=== PATIENT | female | born 1975 | race Two or more races ===

== ENCOUNTER 2016-10-24 03:01 | Inpatient (IN) | payer MEDICAID ==
[~2016-10-24] VITALS: Ht 154.9 cm; Wt 81.0 kg
[2016-10-24] VITALS (8 sets, daily range): BP systolic 110–134; BP diastolic 67–84
[~2016-10-24 03:01] MED LIST: ATEN50TA PO; BACL10TA PO; HYDR-2595 PO; LEVO500T3 PO; METR500T PO; PANT40TA2 PO; PRED-188 PO; SACC250C PO
[2016-10-24] MEDS ORDERED: MORPHINE SULFATE 4 MG/ML SYRG IV ONE ×3 (03:45→09:15)
[2016-10-24] MEDS ORDERED: ONDANSETRON HCL 4 MG/2 ML VIAL IV ONE ×2 (03:45→07:00)
[2016-10-24 03:58] LABS: DEFINITIVE VIEW TRANSMISSION; Hematocrit 25.2 % (36.0-46.0); Hemoglobin 7.7 g/dL (12.2-16.2); Mean Corpuscular Hemoglobin 24.5 pg (28.0-32.0); Mean Corpuscular Hgb Conc. 30.5 g/dL (32.0-36.0); Mean Corpuscular Volume 80.2 fL (80.0-100.0); Mean Platelet Volume 7.8 fL (7.4-10.4); Platelet Count (auto) 328 10^3/uL (140-450); White Blood Cell 3.7 10^3/uL (4.4-10.8)
[2016-10-24 04:28] LABS: Albumin 2.8 g/dL (3.4-5.0); BUN/Creatinine Ratio 14.2; Bilirubin, Total 0.2 mg/dL (0.2-1.0); Calcium 7.8 mg/dL (8.5-10.1); Potassium 3.6 mmol/L (3.5-5.1); Total Protein 6.9 g/dL (6.4-8.2)
[2016-10-24] MEDS ORDERED: SODIUM CHLORIDE 0.9% 1,000 ML IV ONE (04:30)
[2016-10-24 04:42] LABS: Red Cell Distribution Width 23.4 % (11.6-16.0)
[2016-10-24 04:43] LABS: Metamyelocytes % 0; Myelocytes % 0; Promyelocytes % 0; Reactive Lymphocytes 0
[2016-10-24 05:28] LABS: Anisocytosis Moderate; Hypersegmented Neutrophils Present; Hypochromia Moderate; Platelet Estimate Adequate
[2016-10-24 05:29] LABS: Ovalocytes MODERATE
[2016-10-24 07:04] LABS: Urine Color Light Yellow (Yellow)
[2016-10-24 07:05] LABS: Urine Bilirubin Negative (Negative); Urine Glucose Normal (Normal)
[2016-10-24 07:07] LABS: Urine Urobilinogen Normal (Negative)
[2016-10-24 07:08] LABS: Urine Blood Negative /uL (Negative); Urine Ketone Negative (Negative); Urine Nitrite Negative (Negative); Urine pH 6.5 (5.0-8.0)
[2016-10-24 07:11] LABS: Urine RBC None Seen /hpf (0 - 4); Urine Squamous Epithelial Cell FEW /hpf (<5)
[2016-10-24 07:55] LABS: Amylase 100 U/L (25-115)
[2016-10-24] MEDS ORDERED: PANTOPRAZOLE SODIUM 40 MG/10 ML VIAL IV ONE (12:45)
[2016-10-24] MEDS ORDERED: MORPHINE SULF INJ 2 MG/ML SYRINGE 1ML IV PRN (12:45)
[2016-10-24] MEDS ORDERED: cefTRIAXone 1GM/50ML D5W 50 ML IV ONE (12:45)
[2016-10-24] MEDS ORDERED: GASTROGRAFIN 120 ML SOL ONE (12:49)
[2016-10-24] MEDS ORDERED: predniSONE 5 MG TAB PO ONE (13:00)
[2016-10-24] MEDS: SODIUM CHLORIDE 0.9% 1,000 ML IV SCH (13:11)
[2016-10-24] MEDS ORDERED: AZITHROMYCIN 250 MG TAB PO ONE (13:45)
[2016-10-24] MEDS: ONDANSETRON HCL 4 MG/2 ML VIAL IV PRN (16:13)
[2016-10-24] MEDS: MORPHINE SULF INJ 2 MG/ML SYRINGE 1ML IV PRN ×2 (18:05→23:36)
[2016-10-24] MEDS: HYDROcodone-ACET 5/325MG TAB PO PRN (20:49)
[2016-10-25] VITALS (7 sets, daily range): BP systolic 116–160; BP diastolic 63–86
[2016-10-25] MEDS: SODIUM CHLORIDE 0.9% 1,000 ML IV SCH ×2 (02:05→17:19)
[2016-10-25] MEDS: MORPHINE SULF INJ 2 MG/ML SYRINGE 1ML IV PRN ×4 (04:03→21:59)
[2016-10-25] MEDS: ONDANSETRON HCL 4 MG/2 ML VIAL IV PRN ×3 (04:03→17:20)
[2016-10-25 05:36] LABS: Basophils # (auto) 0 uL; DEFINITIVE VIEW TRANSMISSION; Eosinophils # (auto) 0.1 uL; Eosinophils % (auto) 2.4 % (0.0-7.0); Hematocrit 29.6 % (36.0-46.0); Hemoglobin 9.3 g/dL (12.2-16.2); Lymphocytes # (auto) 0.3 uL; Lymphocytes % (auto) 6.1 % (10.0-50.0); Mean Corpuscular Hemoglobin 25.1 pg (28.0-32.0); Mean Corpuscular Hgb Conc. 31.5 g/dL (32.0-36.0); Mean Corpuscular Volume 79.7 fL (80.0-100.0); Mean Platelet Volume 8.1 fL (7.4-10.4); Monocytes # (auto) 0.2 uL; Monocytes % (auto) 3.6 % (0.0-12.0); Neutrophils # (auto) 3.9 uL; Neutrophils % (auto) 87.9 % (37.0-80.0); Platelet Count (auto) 273 10^3/uL (140-450); White Blood Cell 4.4 10^3/uL (4.4-10.8)
[2016-10-25 05:53] LABS: INR 1.08 (0.9-1.15); Partial Thromboplastin Time 23.6 sec (22.64-33.71); Prothrombin Time 11.1 sec (9.37-12.3)
[2016-10-25 05:56] LABS: Red Cell Distribution Width 20.5 % (11.6-16.0)
[2016-10-25 06:10] LABS: Calcium 7.5 mg/dL (8.5-10.1); Potassium 3.5 mmol/L (3.5-5.1)
[2016-10-25 06:26] LABS: Anisocytosis Moderate; Hypochromia Slight; Ovalocytes MODERATE
[2016-10-25 06:27] LABS: Large Platelets FEW; Platelet Estimate Adequa; Tear Drop Cells FEW
[2016-10-25] MEDS: HYDROcodone-ACET 5/325MG TAB PO PRN (07:22)
[2016-10-25] MEDS: cefTRIAXone 1GM/50ML D5W 50 ML IV SCH (10:06)
[2016-10-25] MEDS: predniSONE 5 MG TAB PO SCH (10:06)
[2016-10-25] MEDS: PANTOPRAZOLE SODIUM 40 MG/10 ML VIAL IV SCH (10:06)
[2016-10-25] MEDS: AZITHROMYCIN 250 MG TAB PO SCH (10:07)
[2016-10-26] MEDS: ONDANSETRON HCL 4 MG/2 ML VIAL IV PRN ×2 (02:04→10:45)
[2016-10-26] MEDS: MORPHINE SULF INJ 2 MG/ML SYRINGE 1ML IV PRN ×3 (02:05→10:45)
[2016-10-26] MEDS: SODIUM CHLORIDE 0.9% 1,000 ML IV SCH (04:45)
[2016-10-26 05:00] VITALS: BP 142/60
[2016-10-26 09:00] VITALS: BP_SYST 127; BP_SYST 139; BP_DIAS 100; BP_DIAS 89
[2016-10-26] MEDS: AZITHROMYCIN 250 MG TAB PO SCH (10:44)
[2016-10-26] MEDS: predniSONE 5 MG TAB PO SCH (10:44)
[2016-10-26] MEDS: PANTOPRAZOLE SODIUM 40 MG/10 ML VIAL IV SCH (10:45)
[2016-10-26] MEDS: cefTRIAXone 1GM/50ML D5W 50 ML IV SCH (10:55)
[2016-10-26 13:00] VITALS: BP 138/77
== END 2016-10-26 14:25 | disposition left against medical advice (07) | DRG 254 ==
LOC: ER 03:01 → OVERFLOW 03:02 → EAST 14:23 → WEST WING 14:54
PROVIDERS: ADMIT Internal Medicine; ATTEND Internal Medicine
PROC: 30233N1 Transfusion of Nonautologous Red Blood Cells into Peripheral Vein, Percutaneous Approach (ICD-10-PCS; principal; 2016-10-24)
DX: K43.9 Ventral hernia without obstruction or gangrene (principal); J18.9 Pneumonia, unspecified organism; E44.0 Moderate protein-calorie malnutrition; M32.9 Systemic lupus erythematosus, unspecified; K52.9 Noninfective gastroenteritis and colitis, unspecified; I10 Essential (primary) hypertension; J44.9 Chronic obstructive pulmonary disease, unspecified; D64.9 Anemia, unspecified; G89.29 Other chronic pain; M79.7 Fibromyalgia; Z82.49 Family history of ischemic heart disease and other diseases of the circulatory system; Z83.3 Family history of diabetes mellitus; Z87.11 Personal history of peptic ulcer disease; Z87.442 Personal history of urinary calculi; Z87.891 Personal history of nicotine dependence; F32.9 Major depressive disorder, single episode, unspecified; M19.90 Unspecified osteoarthritis, unspecified site; Z90.49 Acquired absence of other specified parts of digestive tract; Z90.721 Acquired absence of ovaries, unilateral; Z68.33 Body mass index [BMI] 33.0-33.9, adult; Z53.21 Procedure and treatment not carried out due to patient leaving prior to being seen by health care provider
CPT/HCPCS: 36415; 71010; 74176; 74250; 76830; 76856; 80048; 80053; 81001; 82150; 82270; 83540; 83550; 83690; 84702; 85007; 85025; 85027; 85610; 85730; 86850; 86900; 86901; 86920; 93005; 94761; 96361; 96365; 96375; 96376; C9113; J0696; J2405

== ENCOUNTER 2017-04-18 23:09 | Emergency (ER) | payer MEDICAID ==
[~2017-04-18] VITALS: Ht 157.5 cm; Wt 74.4 kg
[~2017-04-18 23:09] MED LIST changes: +LEVO500T21 PO; -LEVO500T3 PO
[2017-04-18 23:48] VITALS: BP 124/60
[2017-04-19 00:11] LABS: Basophils # (auto) 0 uL; Basophils % (auto) 0.4 % (0.0-2.0); DEFINITIVE SEE PRINTOUT; Eosinophils # (auto) 0.1 uL; Eosinophils % (auto) 2.4 % (0.0-7.0); Hematocrit 28.9 % (36.0-46.0); Hemoglobin 9.2 g/dL (12.2-16.2); Lymphocytes # (auto) 1.2 uL; Lymphocytes % (auto) 20.9 % (10.0-50.0); Mean Corpuscular Hemoglobin 26.6 pg (28.0-32.0); Mean Corpuscular Hgb Conc. 31.8 g/dL (32.0-36.0); Mean Corpuscular Volume 83.6 fL (80.0-100.0); Mean Platelet Volume 7.6 fL (7.4-10.4); Monocytes # (auto) 0.5 uL; Neutrophils # (auto) 3.9 uL; Neutrophils % (auto) 68.3 % (37.0-80.0); Platelet Count (auto) 252 10^3/uL (140-450); Red Cell Distribution Width 18.5 % (11.6-16.0); White Blood Cell 5.7 10^3/uL (4.4-10.8)
[2017-04-19 00:31] LABS: INR 0.95 (0.9-1.15); Partial Thromboplastin Time 23.8 sec (22.64-33.71); Prothrombin Time 10.4 sec (9.37-12.3)
[2017-04-19 00:39] LABS: Albumin 3.3 g/dL (3.4-5.0); Anion Gap 9 (5-15); BUN/Creatinine Ratio 22.1; Blood Urea Nitrogen 25 mg/dL (7-18); Calcium 8.5 mg/dL (8.5-10.1); Carbon Dioxide 23 mmol/L (21-32); Chloride 113 mmol/L (98-107); GFR African American 68 mL/min; GFR Non-African American 56 mL/min; Glucose 80 mg/dL (74-106); Sodium 145 mmol/L (136-145)
[2017-04-19 00:44] LABS: Alkaline Phosphatase 58 U/L (45-117); Aspartate Aminotransferase 21 U/L (15-37); Bilirubin, Total 0.2 mg/dL (0.2-1.0); Total Protein 7.5 g/dL (6.4-8.2)
== END 2017-04-19 05:26 | disposition left against medical advice (07) ==
LOC: ER 23:20
DX: R10.9 Unspecified abdominal pain (principal); Z53.21 Procedure and treatment not carried out due to patient leaving prior to being seen by health care provider
CPT/HCPCS: 36415; 71020; 80053; 84484; 85025; 85610; 85730

== ENCOUNTER 2017-05-16 08:38 | Emergency (ER) | payer MEDICAID ==
[~2017-05-16] VITALS: Ht 157.5 cm; Wt 74.4 kg
[2017-05-16] MEDS ORDERED: SODIUM CHLORIDE 0.9% 1,000 ML IVB ONE (09:14)
[2017-05-16] MEDS ORDERED: DEXAMETHASONE SOD PHOS 4 MG/1ML SDV INJ IV ONE (09:15)
[2017-05-16] MEDS ORDERED: PROMETHAZINE HCL 25 MG/ML 1ML IV PRN (09:15)
[2017-05-16] MEDS ORDERED: KETOROLAC TROMETH 30 MG/ML 1ML VIAL IV ONE (09:15)
[2017-05-16 09:54] LABS: Basophils # (auto) 0 uL; Basophils % (auto) 0.9 % (0.0-2.0); Eosinophils # (auto) 0.1 uL; Hematocrit 32.6 % (36.0-46.0); Hemoglobin 9.7 g/dL (12.2-16.2); Lymphocytes # (auto) 0.9 uL; Lymphocytes % (auto) 25.5 % (10.0-50.0); Mean Corpuscular Hemoglobin 25.7 pg (28.0-32.0); Mean Corpuscular Hgb Conc. 29.8 g/dL (32.0-36.0); Mean Platelet Volume 7.9 fL (7.4-10.4); Monocytes # (auto) 0.3 uL; Monocytes % (auto) 7.3 % (0.0-12.0); Neutrophils # (auto) 2.2 uL; Neutrophils % (auto) 63.3 % (37.0-80.0); Nucleated Red Blood Cells % 0.1 %; Platelet Count (auto) 218 10^3/uL (140-450); White Blood Cell 3.5 10^3/uL (4.4-10.8)
[2017-05-16 10:04] LABS: Magnesium 2.1 mg/dL (1.6-2.6)
[2017-05-16 10:05] LABS: Albumin 3.4 g/dL (3.4-5.0); Calcium 8.5 mg/dL (8.5-10.1); Potassium 3.7 mmol/L (3.5-5.1)
[2017-05-16 10:09] LABS: BUN/Creatinine Ratio 14.9; Bilirubin, Total 0.3 mg/dL (0.2-1.0); Total Protein 7.4 g/dL (6.4-8.2)
[2017-05-16 10:20] VITALS: BP 115/57
[2017-05-16 11:52] LABS: Urine Bilirubin Negative (Negative); Urine Blood Negative /uL (Negative); Urine Color Yellow (Yellow); Urine Glucose Normal (Normal); Urine Ketone Negative (Negative); Urine Mucus FEW (None Seen); Urine Nitrite Negative (Negative); Urine RBC 2 /hpf (0 - 4); Urine Squamous Epithelial Cell FEW /hpf (<5); Urine Urobilinogen Normal (Negative)
== END 2017-05-16 12:04 | disposition left against medical advice (07) ==
LOC: ER 08:38
DX: N39.0 Urinary tract infection, site not specified (principal); M32.9 Systemic lupus erythematosus, unspecified; K43.9 Ventral hernia without obstruction or gangrene; D64.9 Anemia, unspecified; M19.90 Unspecified osteoarthritis, unspecified site; J44.9 Chronic obstructive pulmonary disease, unspecified; I10 Essential (primary) hypertension; Z87.442 Personal history of urinary calculi; Z90.49 Acquired absence of other specified parts of digestive tract; Z90.89 Acquired absence of other organs; Z87.891 Personal history of nicotine dependence; Z79.899 Other long term (current) drug therapy; Z53.29 Procedure and treatment not carried out because of patient's decision for other reasons
CPT/HCPCS: 36415; 71020; 74176; 80053; 81001; 83690; 83735; 84443; 85025; 93005; 96361; 96374; 96375; 99285; J1100; J1885; J2550; J7030

== ENCOUNTER 2017-11-26 12:40 | Inpatient (IN) | payer MEDICAID ==
[~2017-11-26] VITALS: Ht 157.5 cm; Wt 82.4 kg
[2017-11-26] MEDS ORDERED: PANTOPRAZOLE 40 MG/10 ML VIAL IV STA (13:13)
[2017-11-26] MEDS ORDERED: SODIUM CHLORIDE 0.9% 500 ML IVB ONE (13:13)
[2017-11-26] MEDS ORDERED: ONDANSETRON HCL 4 MG/2 ML VIAL IV ONE (13:15)
[2017-11-26] MEDS ORDERED: MORPHINE SULFATE 4 MG/ML SYR/VIAL IV ONE (13:15)
[2017-11-26 14:08] LABS: Basophils # (auto) 0 uL; Hematocrit 32.7 % (36.0-46.0); Mean Corpuscular Hemoglobin 25.7 pg (28.0-32.0); Mean Corpuscular Hgb Conc. 31.6 g/dL (32.0-36.0); Mean Corpuscular Volume 81.4 fL (80.0-100.0); Monocytes # (auto) 0.4 uL; Red Blood Cells 4.02 10^6/uL (4.0-5.20); White Blood Cell 7.4 10^3/uL (4.4-10.8)
[2017-11-26 14:10] LABS: Basophils % (auto) 0.2 % (0.0-2.0); Eosinophils # (auto) 0 uL; Eosinophils % (auto) 0.5 % (0.0-7.0); Hemoglobin 10.4 g/dL (12.2-16.2); Lymphocytes # (auto) 0.5 uL; Lymphocytes % (auto) 6.6 % (10.0-50.0); Monocytes % (auto) 5.3 % (0.0-12.0); Neutrophils # (auto) 6.5 uL; Neutrophils % (auto) 87.4 % (37.0-80.0); Platelet Count (auto) 264 10^3/uL (140-450); Red Cell Distribution Width 17.7 % (11.8-14.3)
[2017-11-26 14:21] LABS: Calcium 8.8 mg/dL (8.5-10.1); Magnesium 1.8 mg/dL (1.6-2.6); Potassium 3.1 mmol/L (3.5-5.1)
[2017-11-26 14:23] LABS: BUN/Creatinine Ratio 17.3
[2017-11-26 14:26] LABS: Bilirubin, Total 0.2 mg/dL (0.2-1.0); Total Protein 8.1 g/dL (6.4-8.2)
[2017-11-26] MEDS ORDERED: POTASSIUM CHL 20MEQ/100ML 100 ML IV ONE (14:45)
[2017-11-26] MEDS ORDERED: PANTOPRAZOLE 40 MG/10 ML VIAL IV ONE (15:15)
[2017-11-26] MEDS ORDERED: FAMOTIDINE (10MG/ML) 2ML VL IV ONE (15:15)
[2017-11-26] MEDS ORDERED: cefTRIAXone 1GM/10ml IVPUSH 10 ML IV ONE (15:15)
[2017-11-26 15:19] LABS: Urine Bacteria FEW /hpf (None Seen); Urine Blood 2+ /uL (Negative); Urine Mucus FEW (None Seen); Urine Specific Gravity 1.031 (1.001-1.035); Urine WBC 26 /hpf (0 - 5)
[2017-11-26] MEDS ORDERED: METHOTREXATE 2.5 MG TAB PO SCH (15:30)
[2017-11-26] MEDS ORDERED: predniSONE 5 MG TAB PO ONE (15:30)
[2017-11-26] MEDS ORDERED: MORPHINE SULFATE 4 MG/ML SYR/VIAL IV PRN (15:45)
[2017-11-26] MEDS ORDERED: NITROGLYCERIN 0.4 MG SL TAB SL PRN (15:45)
[2017-11-26] MEDS ORDERED: DOCUSATE SOD 100 MG CAP PO PRN (15:45)
[2017-11-26] MEDS ORDERED: AZITHROMYCIN 500MG/ 250ML 250 ML IV ONE (15:45)
[2017-11-26] MEDS ORDERED: GASTROGRAFIN 120 ML SOL ONE (15:57)
[2017-11-26] MEDS: SODIUM CHLORIDE 0.9% 1,000 ML IV SCH (16:19)
[2017-11-26] MEDS ORDERED: LORazepam 2MG/ML-1ML VIAL IV ONE (16:45)
[2017-11-26 18:00] VITALS: BP 128/86
[2017-11-26] MEDS: BOOST PLUS 8 ounce PO SCH (18:00)
[2017-11-26] MEDS: MORPHINE SULFATE 4 MG/ML SYR/VIAL IV PRN (19:38)
[2017-11-26] MEDS: ALBUTEROL SULF 2.5 MG/0.5ML(0.5%) NEB SOLN NEB SCH (20:29)
[2017-11-26] MEDS: TEMAZEPAM 15 MG CAP PO PRN (21:50)
[2017-11-26 22:00] VITALS: BP 122/83
[2017-11-27] MEDS: ONDANSETRON HCL 4 MG/2 ML VIAL IV PRN ×3 (00:10→10:44)
[2017-11-27] MEDS: SODIUM CHLORIDE 0.9% 1,000 ML IV SCH ×3 (00:11→18:07)
[2017-11-27] MEDS: MORPHINE SULFATE 4 MG/ML SYR/VIAL IV PRN ×5 (00:11→19:51)
[2017-11-27 05:00] VITALS: BP 120/77
[2017-11-27 05:28] LABS: Basophils # (auto) 0 uL; Basophils % (auto) 0.2 % (0.0-2.0); Eosinophils # (auto) 0 uL; Eosinophils % (auto) 0.8 % (0.0-7.0); Hematocrit 28.4 % (36.0-46.0); Lymphocytes # (auto) 0.6 uL; Lymphocytes % (auto) 11.6 % (10.0-50.0); Mean Corpuscular Hemoglobin 26.3 pg (28.0-32.0); Mean Corpuscular Hgb Conc. 31.8 g/dL (32.0-36.0); Mean Corpuscular Volume 82.8 fL (80.0-100.0); Monocytes # (auto) 0.2 uL; Monocytes % (auto) 4.2 % (0.0-12.0); Neutrophils # (auto) 4.5 uL; Neutrophils % (auto) 83.2 % (37.0-80.0); Platelet Count (auto) 221 10^3/uL (140-450); Red Blood Cells 3.43 10^6/uL (4.0-5.20); Red Cell Distribution Width 17.8 % (11.8-14.3); White Blood Cell 5.4 10^3/uL (4.4-10.8)
[2017-11-27 05:45] LABS: Albumin 2.5 g/dL (3.4-5.0); BUN/Creatinine Ratio 11.7; Bilirubin, Total 0.2 mg/dL (0.2-1.0); Calcium 7.7 mg/dL (8.5-10.1); Potassium 3.2 mmol/L (3.5-5.1)
[2017-11-27] MEDS: ALBUTEROL SULF 2.5 MG/0.5ML(0.5%) NEB SOLN NEB SCH ×5 (05:49→23:35)
[2017-11-27] MEDS: HYDROcodone-ACET 5/325MG TAB PO PRN (05:51)
[2017-11-27 08:58] VITALS: BP 116/71
[2017-11-27 09:16] VITALS: BP 116/71
[2017-11-27] MEDS ORDERED: METHOTREXATE 2.5 MG TAB PO SCH (10:00)
[2017-11-27] MEDS ORDERED: PANTOPRAZOLE 40 MG/10 ML VIAL IV SCH (10:00)
[2017-11-27] MEDS: BOOST PLUS 8 ounce PO SCH ×3 (10:09→18:00)
[2017-11-27] MEDS: MULTIPLE VITAMIN TAB PO SCH (10:11)
[2017-11-27] MEDS: predniSONE 5 MG TAB PO SCH (10:12)
[2017-11-27] MEDS: METOPROLOL SUCCINATE XL 50 MG TAB PO SCH (10:12)
[2017-11-27] MEDS: FOLIC ACID 1 MG TAB PO SCH (10:12)
[2017-11-27] MEDS: FAMOTIDINE (10MG/ML) 2ML VL IV SCH (10:13)
[2017-11-27] MEDS: cefTRIAXone 1GM/10ml IVPUSH 10 ML IV SCH (10:13)
[2017-11-27] MEDS: AZITHROMYCIN 500MG/ 250ML 250 ML IV SCH (10:14)
[2017-11-27] MEDS ORDERED: POTASSIUM CHLORIDE 40 MEQ, LIDOCAINE 1% (LOCAL ANESTH.) 4 ML in SODIUM CHL 0.9% 100 ML IV ONE (10:30)
[2017-11-27] MEDS ORDERED: PROMETHAZINE HCL 25 MG/ML 1ML IV ONE (12:30)
[2017-11-27] MEDS ORDERED: PROMETHAZINE HCL 25 MG/ML 1ML IV PRN (12:30)
[2017-11-27 13:11] VITALS: BP 106/83
[2017-11-27 16:28] VITALS: BP 128/75
[2017-11-27 22:00] VITALS: BP 118/67
[2017-11-27] MEDS: TEMAZEPAM 15 MG CAP PO PRN (22:53)
[2017-11-28] MEDS: SODIUM CHLORIDE 0.9% 1,000 ML IV SCH ×3 (00:53→15:58)
[2017-11-28] MEDS: HYDROcodone-ACET 5/325MG TAB PO PRN ×4 (01:52→22:55)
[2017-11-28] MEDS: ACETAMINOPHEN 325 MG TAB PO PRN ×2 (05:48→11:33)
[2017-11-28 05:49] LABS: Basophils # (auto) 0 uL; Lymphocytes # (auto) 0.8 uL; Monocytes # (auto) 0.2 uL; Nucleated Red Blood Cells % 0.1 %
[2017-11-28 05:52] LABS: Basophils % (auto) 0.3 % (0.0-2.0); Eosinophils # (auto) 0.1 uL; Eosinophils % (auto) 3.8 % (0.0-7.0); Hematocrit 28.9 % (36.0-46.0); Hemoglobin 9.1 g/dL (12.2-16.2); Lymphocytes % (auto) 21.2 % (10.0-50.0); Mean Corpuscular Hgb Conc. 31.5 g/dL (32.0-36.0); Mean Corpuscular Volume 83.4 fL (80.0-100.0); Monocytes % (auto) 5.9 % (0.0-12.0); Neutrophils # (auto) 2.6 uL; Neutrophils % (auto) 68.8 % (37.0-80.0); Platelet Count (auto) 223 10^3/uL (140-450); Red Blood Cells 3.46 10^6/uL (4.0-5.20); Red Cell Distribution Width 17.7 % (11.8-14.3); White Blood Cell 3.8 10^3/uL (4.4-10.8)
[2017-11-28 05:55] LABS: Mean Corpuscular Hemoglobin 26.7 pg (28.0-32.0)
[2017-11-28 05:59] VITALS: BP 123/67
[2017-11-28] MEDS: ALBUTEROL SULF 2.5 MG/0.5ML(0.5%) NEB SOLN NEB SCH ×3 (06:08→19:52)
[2017-11-28 06:15] LABS: Albumin 2.5 g/dL (3.4-5.0); BUN/Creatinine Ratio 8.9; Bilirubin, Total 0.1 mg/dL (0.2-1.0); Calcium 7.8 mg/dL (8.5-10.1); Magnesium 1.7 mg/dL (1.6-2.6); Potassium 3.3 mmol/L (3.5-5.1); Total Protein 6.7 g/dL (6.4-8.2)
[2017-11-28 08:00] VITALS: BP 137/84
[2017-11-28] MEDS: BOOST PLUS 8 ounce PO SCH ×3 (08:18→17:19)
[2017-11-28 08:49] VITALS: BP 137/84
[2017-11-28] MEDS: AZITHROMYCIN 500MG/ 250ML 250 ML IV SCH (09:20)
[2017-11-28] MEDS: MULTIPLE VITAMIN TAB PO SCH (09:21)
[2017-11-28] MEDS: predniSONE 5 MG TAB PO SCH (09:21)
[2017-11-28] MEDS: FOLIC ACID 1 MG TAB PO SCH (09:21)
[2017-11-28] MEDS: FAMOTIDINE (10MG/ML) 2ML VL IV SCH (09:21)
[2017-11-28] MEDS: cefTRIAXone 1GM/10ml IVPUSH 10 ML IV SCH (09:22)
[2017-11-28] MEDS: METOPROLOL SUCCINATE XL 50 MG TAB PO SCH (09:23)
[2017-11-28] MEDS ORDERED: METHOTREXATE 2.5 MG TAB PO SCH (10:00)
[2017-11-28] MEDS ORDERED: POTASSIUM CHLORIDE 40 MEQ, LIDOCAINE 1% (LOCAL ANESTH.) 4 ML in SODIUM CHL 0.9% 100 ML IV ONE (10:15)
[2017-11-28 13:00] VITALS: BP 150/91
[2017-11-28 16:38] VITALS: BP 142/73
[2017-11-28 22:00] VITALS: BP 124/72
[2017-11-29] MEDS: ALBUTEROL SULF 2.5 MG/0.5ML(0.5%) NEB SOLN NEB SCH
[2017-11-29] MEDS: SODIUM CHLORIDE 0.9% 1,000 ML IV SCH ×2 (01:53→10:13)
[2017-11-29 05:00] VITALS: BP 134/74
[2017-11-29] MEDS: HYDROcodone-ACET 5/325MG TAB PO PRN (05:44)
[2017-11-29 06:43] LABS: Basophils # (auto) 0 uL; Mean Corpuscular Hemoglobin 26.3 pg (28.0-32.0); Monocytes # (auto) 0.3 uL; White Blood Cell 5.4 10^3/uL (4.4-10.8)
[2017-11-29 06:47] LABS: Basophils % (auto) 0.2 % (0.0-2.0); Eosinophils # (auto) 0.2 uL; Eosinophils % (auto) 2.8 % (0.0-7.0); Hematocrit 28.4 % (36.0-46.0); Lymphocytes % (auto) 19.3 % (10.0-50.0); Mean Corpuscular Hgb Conc. 31.7 g/dL (32.0-36.0); Mean Corpuscular Volume 83.1 fL (80.0-100.0); Neutrophils # (auto) 3.9 uL; Neutrophils % (auto) 72.7 % (37.0-80.0); Platelet Count (auto) 234 10^3/uL (140-450); Red Blood Cells 3.42 10^6/uL (4.0-5.20); Red Cell Distribution Width 18.3 % (11.8-14.3)
[2017-11-29 07:01] LABS: Albumin 2.4 g/dL (3.4-5.0); BUN/Creatinine Ratio 9.3; Calcium 8.1 mg/dL (8.5-10.1); Potassium 3.5 mmol/L (3.5-5.1)
[2017-11-29 07:04] LABS: Bilirubin, Total 0.2 mg/dL (0.2-1.0); Total Protein 6.2 g/dL (6.4-8.2)
[2017-11-29 08:46] VITALS: BP 134/77
[2017-11-29] MEDS: AZITHROMYCIN 500MG/ 250ML 250 ML IV SCH (09:39)
[2017-11-29] MEDS: FAMOTIDINE (10MG/ML) 2ML VL IV SCH (09:39)
[2017-11-29] MEDS: cefTRIAXone 1GM/10ml IVPUSH 10 ML IV SCH (09:39)
[2017-11-29] MEDS: MULTIPLE VITAMIN TAB PO SCH (09:39)
[2017-11-29] MEDS: FOLIC ACID 1 MG TAB PO SCH (09:39)
[2017-11-29] MEDS: predniSONE 5 MG TAB PO SCH (09:39)
[2017-11-29] MEDS: ACETAMINOPHEN 325 MG TAB PO PRN (09:50)
[2017-11-29] MEDS: BOOST PLUS 8 ounce PO SCH (11:28)
[2017-11-29 11:48] VITALS: BP 137/84
[2017-11-29 12:37] VITALS: BP 126/80
== END 2017-11-29 12:13 | disposition home or self-care (01) | DRG 140 ==
LOC: EDBD 12:40 → ER 12:40 → TELE 12:41 → TELE-CENTR 17:50
PROVIDERS: ADMIT Internal Medicine; ATTEND Internal Medicine
DX: J44.0 Chronic obstructive pulmonary disease with (acute) lower respiratory infection (principal); E43 Unspecified severe protein-calorie malnutrition; J18.9 Pneumonia, unspecified organism; K56.600 Partial intestinal obstruction, unspecified as to cause; M32.9 Systemic lupus erythematosus, unspecified; E86.0 Dehydration; D50.9 Iron deficiency anemia, unspecified; D63.8 Anemia in other chronic diseases classified elsewhere; E87.6 Hypokalemia; F32.9 Major depressive disorder, single episode, unspecified; R09.1 Pleurisy; I12.9 Hypertensive chronic kidney disease with stage 1 through stage 4 chronic kidney disease, or unspecified chronic kidney disease; M19.90 Unspecified osteoarthritis, unspecified site; N18.2 Chronic kidney disease, stage 2 (mild); K42.9 Umbilical hernia without obstruction or gangrene; Z90.49 Acquired absence of other specified parts of digestive tract; Z79.899 Other long term (current) drug therapy; Z87.442 Personal history of urinary calculi; Z87.440 Personal history of urinary (tract) infections; Z87.11 Personal history of peptic ulcer disease; Z82.49 Family history of ischemic heart disease and other diseases of the circulatory system; Z83.3 Family history of diabetes mellitus; Z68.33 Body mass index [BMI] 33.0-33.9, adult
CPT/HCPCS: 36415; 74176; 74250; 80053; 81001; 83690; 83735; 85025; 87040; 87070; 87086; 87205; 94640; 94761; 96361; 96365; 96375; 96376; C9113; J2001; J2405; J3480; J3490

== ENCOUNTER 2018-05-22 11:33 | Emergency (ER) | payer MEDICAID ==
[~2018-05-22] VITALS: Ht 157.5 cm; Wt 83.9 kg
[2018-05-22 11:51] VITALS: BP 113/52
[2018-05-22 13:34] LABS: Basophils # (auto) 0 uL; Eosinophils # (auto) 0 uL; Hemoglobin 8.5 g/dL (12.2-16.2); Lymphocytes # (auto) 0.7 uL; Monocytes # (auto) 0.2 uL; Neutrophils # (auto) 4.5 uL; White Blood Cell 5.5 10^3/uL (4.4-10.8)
[2018-05-22 13:37] LABS: Basophils % (auto) 0.5 % (0.0-2.0); Eosinophils % (auto) 0.8 % (0.0-7.0); Hematocrit 28.1 % (36.0-46.0); Lymphocytes % (auto) 13.3 % (10.0-50.0); Mean Corpuscular Hemoglobin 24.8 pg (28.0-32.0); Mean Corpuscular Hgb Conc. 30.1 g/dL (32.0-36.0); Mean Corpuscular Volume 82.4 fL (80.0-100.0); Monocytes % (auto) 3.9 % (0.0-12.0); Neutrophils % (auto) 81.5 % (37.0-80.0); Platelet Count (auto) 292 10^3/uL (140-450); Red Blood Cells 3.41 10^6/uL (4.0-5.20)
[2018-05-22 13:54] LABS: Albumin 2.9 g/dL (3.4-5.0); BUN/Creatinine Ratio 31.7; Bilirubin, Total 0.2 mg/dL (0.2-1.0); Calcium 8.1 mg/dL (8.5-10.1); Potassium 4.7 mmol/L (3.5-5.1); Total Protein 7.1 g/dL (6.4-8.2)
== END 2018-05-22 18:08 | disposition left against medical advice (07) ==
LOC: ER 11:33
DX: M79.89 Other specified soft tissue disorders (principal); Z53.21 Procedure and treatment not carried out due to patient leaving prior to being seen by health care provider
CPT/HCPCS: 36415; 80053; 83880; 84702; 85025

== ENCOUNTER 2018-12-16 10:50 | Inpatient (IN) | payer MEDICAID | END 2018-12-20 15:45 | disposition home or self-care (01) | LOC: TELE-EAST 12-19 05:57 → ER 10:50 → TELE 16:31 → TELE-CENTR 18:52 | DX: K52.9 Noninfective gastroenteritis and colitis, unspecified (principal); M32.9 Systemic lupus erythematosus, unspecified; E87.2 Acidosis; E44.1 Mild protein-calorie malnutrition; E86.0 Dehydration; N39.0 Urinary tract infection, site not specified; I10 Essential (primary) hypertension; R00.1 Bradycardia, unspecified; E66.9 Obesity, unspecified; D50.9 Iron deficiency anemia, unspecified ==

== ENCOUNTER 2020-05-17 12:58 | Emergency (ER) | payer MEDICAID ==
[~2020-05-17] VITALS: Ht 152.4 cm; Wt 86.2 kg
[2020-05-17 14:16] VITALS: BP 134/86
[2020-05-17] MEDS ORDERED: methylPREDNISolone SOD SUCC 125 MG/2 ML VL IM ONE (14:30)
[2020-05-17] MEDS ORDERED: ONDANSETRON ODT 4 MG TAB PO ONE (14:30)
[2020-05-17] MEDS ORDERED: OXYCODONE W/ ACETAMINOPHEN 5/325MG TABLET PO ONE (14:30)
== END 2020-05-17 15:14 | disposition left against medical advice (07) ==
LOC: ER 12:58
DX: G89.29 Other chronic pain (principal); I10 Essential (primary) hypertension; J44.9 Chronic obstructive pulmonary disease, unspecified; F32.9 Major depressive disorder, single episode, unspecified; Z79.899 Other long term (current) drug therapy
CPT/HCPCS: Q0162

== ENCOUNTER 2021-03-25 19:24 | Inpatient (IN) | payer MEDICAID ==
[~2021-03-25] VITALS: Ht 157.5 cm; Wt 101.4 kg
[~2021-03-25 19:24] MED LIST changes: -LEVO500T21 PO; +LEVO500T31 PO
[2021-03-25] MEDS ORDERED: KETOROLAC TROMETH 30 MG/ML 1ML VIAL IV ONE (20:15)
[2021-03-25] MEDS ORDERED: fentaNYL CITRATE 100 MCG/2 ML VL IV ONE ×2 (20:15→22:30)
[2021-03-26] MEDS ORDERED: SODIUM CHLORIDE 0.9% 1,000 ML IV ONE
[2021-03-26] MEDS ORDERED: PROPOFOL 10 MG/ML 20 ML IV ONE
[2021-03-26] MEDS ORDERED: PROPOFOL 100 ML IV ONE (01:37)
[2021-03-26] MEDS ORDERED: ONDANSETRON HCL 4 MG/2 ML VIAL IV ONE (04:00)
[2021-03-26] MEDS ORDERED: HYDROmorphone HCL 2 MG/ML VL IV ONE (04:00)
[2021-03-26 04:50] LABS: Basophils # (auto) 0 10 ^3/uL (0-0.2); Basophils % (auto) 0.4 % (0.0-2.0); Eosinophils # (auto) 0.1 10 ^3/uL (0-0.8); Eosinophils % (auto) 0.6 % (0.0-7.0); Hematocrit 33.4 % (36.0-46.0); Hemoglobin 11.1 g/dL (12.2-16.2); Lymphocytes # (auto) 1.9 10 ^3/uL (0.4-5.4); Lymphocytes % (auto) 17.8 % (10.0-50.0); Mean Corpuscular Hgb Conc. 33.2 g/dL (32.0-36.0); Mean Corpuscular Volume 93.5 fL (80.0-100.0); Monocytes # (auto) 0.4 10 ^3/uL (0-1.3); Monocytes % (auto) 4.1 % (0.0-12.0); Neutrophils # (auto) 8.1 10 ^3/uL (1.6-8.6); Neutrophils % (auto) 77.1 % (37.0-80.0); Red Blood Cells 3.58 10^6/uL (4.0-5.20); Red Cell Distribution Width 14.7 % (11.8-14.3); White Blood Cell 10.5 10^3/uL (4.4-10.8)
[2021-03-26 05:22] LABS: INR 1.03 (0.9-1.15)
[2021-03-26 05:27] LABS: Alanine Aminotransferase 20 U/L (13-56); Anion Gap 7 (5-15); Aspartate Aminotransferase 12 U/L (15-37); Blood Urea Nitrogen 23 mg/dL (7-18); Calcium 7.6 mg/dL (8.5-10.1); Carbon Dioxide 19 mmol/L (21-32); Chloride 115 mmol/L (98-107); GFR African American 84 mL/min; GFR Non-African American 70 mL/min; Glucose 100 mg/dL (74-106); Potassium 3.6 mmol/L (3.5-5.1); Sodium 141 mmol/L (136-145)
[2021-03-26 05:31] LABS: Alkaline Phosphatase 59 U/L (45-117); Bilirubin, Total 0.2 mg/dL (0.2-1.0); Total Protein 6.6 g/dL (6.4-8.2)
[2021-03-26] MEDS ORDERED: MORPHINE SULFATE INJECTION 2 MG/ML SYRG IV PRN (06:45)
[2021-03-26] MEDS ORDERED: DOCUSATE SOD 100 MG CAP PO PRN (06:45)
[2021-03-26] MEDS ORDERED: NITROGLYCERIN 0.4 MG SL TAB SL PRN (06:45)
[2021-03-26] MEDS ORDERED: D5W/SOD CHL 0.45% 1,000 ML IV SCH (06:45)
[2021-03-26] MEDS ORDERED: ACETAMINOPHEN 325 MG TAB PO PRN (06:45)
[2021-03-26] MEDS ORDERED: ONDANSETRON HCL 4 MG/2 ML VIAL IV PRN (06:45)
[2021-03-26] MEDS: KETOROLAC TROMETH 30 MG/ML 1ML VIAL IV PRN ×3 (07:10→18:08)
[2021-03-26 09:26] LABS: Urine Bacteria MOD /hpf (None Seen); Urine Blood Negative /uL (Negative); Urine Hyaline Cast FEW /lpf (0 - 2); Urine Mucus FEW (None Seen); Urine Specific Gravity 1.027 (1.001-1.035); Urine WBC 34 /hpf (0 - 5)
[2021-03-26] MEDS ORDERED: ENOXAPARIN SOD 40 MG/0.4 ML SYRINGE SC SCH (10:00)
[2021-03-26] MEDS ORDERED: ZINC SULFATE 220mg CAP or TAB PO SCH (10:00)
[2021-03-26] MEDS ORDERED: ASCORBIC ACID 500 MG TAB PO SCH (10:00)
[2021-03-26] MEDS ORDERED: MULTIPLE VITAMIN TAB PO SCH (10:00)
[2021-03-26] MEDS: HYDROcodone-ACET 5/325MG TAB PO PRN ×3 (11:32→20:39)
[2021-03-26 12:29] VITALS: BP 150/75
[2021-03-26] MEDS: cefTRIAXone 1GM/50ML D5W 50 ML IV SCH (12:47)
[2021-03-26 17:00] VITALS: BP 135/81
[2021-03-26 22:00] VITALS: BP 124/75
[2021-03-27] MEDS: KETOROLAC TROMETH 30 MG/ML 1ML VIAL IV PRN (01:25)
[2021-03-27] MEDS: HYDROcodone-ACET 5/325MG TAB PO PRN (03:49)
[2021-03-27 05:00] VITALS: BP 132/95
[2021-03-27 07:43] LABS: Basophils # (auto) 0 10 ^3/uL (0-0.2); Basophils % (auto) 0.2 % (0.0-2.0); Eosinophils # (auto) 0.1 10 ^3/uL (0-0.8); Eosinophils % (auto) 0.8 % (0.0-7.0); Hematocrit 31.7 % (36.0-46.0); Hemoglobin 10.8 g/dL (12.2-16.2); Lymphocytes % (auto) 11.6 % (10.0-50.0); Mean Corpuscular Hemoglobin 31.9 pg (28.0-32.0); Mean Corpuscular Hgb Conc. 34.1 g/dL (32.0-36.0); Mean Corpuscular Volume 93.7 fL (80.0-100.0); Monocytes # (auto) 0.4 10 ^3/uL (0-1.3); Monocytes % (auto) 4.4 % (0.0-12.0); Neutrophils # (auto) 7.3 10 ^3/uL (1.6-8.6); Red Blood Cells 3.38 10^6/uL (4.0-5.20); Red Cell Distribution Width 14.4 % (11.8-14.3); White Blood Cell 8.8 10^3/uL (4.4-10.8)
[2021-03-27 07:51] LABS: Potassium 3.4 mmol/L (3.5-5.1)
[2021-03-27 08:03] LABS: Albumin 2.8 g/dL (3.4-5.0); BUN/Creatinine Ratio 23.5; Bilirubin, Total 0.5 mg/dL (0.2-1.0); Calcium 8.1 mg/dL (8.5-10.1); Total Protein 6.5 g/dL (6.4-8.2)
[2021-03-27 09:00] VITALS: BP 143/107
[2021-03-27] MEDS ORDERED: MIDAZOLAM HCL 2MG/2ML 2ml VIAL (1mg/ml) IV PRN (09:15)
[2021-03-27] MEDS ORDERED: MORPHINE SULFATE INJECTION 2 MG/ML SYRG IV PRN (09:15)
[2021-03-27] MEDS ORDERED: ePHEDrine SULFATE 50 MG/ML AMP IV PRN (09:15)
[2021-03-27] MEDS ORDERED: ONDANSETRON HCL 4 MG/2 ML VIAL IV PRN (09:15)
[2021-03-27] MEDS ORDERED: LABETALOL HCL 5 MG/ML 4ML SYRINGE IV PRN (09:15)
[2021-03-27] MEDS ORDERED: HYDROmorphone HCL 2 MG/ML VL IV PRN (09:15)
[2021-03-27] MEDS: cefTRIAXone 1GM/50ML D5W 50 ML IV SCH (09:36)
[2021-03-27 10:36] VITALS: BP 145/86
== END 2021-03-27 11:40 | disposition home or self-care (01) | DRG 342 ==
LOC: ER 19:24 → EDBD 19:24 → TELE 03-26 06:37 → EAST 03-26 10:40 → TELE-EAST 03-26 20:14
PROVIDERS: ADMIT Nurse Practitioner Family; ATTEND Nurse Practitioner Family
PROC: 0PSCXZZ Reposition Right Humeral Head, External Approach (ICD-10-PCS; 2021-03-25)
PROC: BW1C1ZZ Fluoroscopy of Lower Extremity using Low Osmolar Contrast (ICD-10-PCS; 2021-03-27)
PROC: 0PSCXZZ Reposition Right Humeral Head, External Approach (ICD-10-PCS; principal; 2021-03-27 08:24)
DX: S43.004A Unspecified dislocation of right shoulder joint, initial encounter (principal); U07.1 COVID-19; M32.9 Systemic lupus erythematosus, unspecified; I10 Essential (primary) hypertension; J44.9 Chronic obstructive pulmonary disease, unspecified; R00.1 Bradycardia, unspecified; N30.90 Cystitis, unspecified without hematuria; W01.0XXA Fall on same level from slipping, tripping and stumbling without subsequent striking against object, initial encounter; M06.9 Rheumatoid arthritis, unspecified; E66.9 Obesity, unspecified; F32.9 Major depressive disorder, single episode, unspecified; G89.29 Other chronic pain; Y92.098 Other place in other non-institutional residence as the place of occurrence of the external cause; Y99.8 Other external cause status; Y93.89 Activity, other specified; Z81.8 Family history of other mental and behavioral disorders; Z82.49 Family history of ischemic heart disease and other diseases of the circulatory system; Z83.3 Family history of diabetes mellitus; Z87.11 Personal history of peptic ulcer disease; Z87.442 Personal history of urinary calculi; Z90.49 Acquired absence of other specified parts of digestive tract
CPT/HCPCS: 23650; 36415; 71045; 73020; 73030; 73200; 76000; 80053; 81001; 83880; 84484; 84702; 85025; 85610; 87086; 87426; 93005; 93306; 96361; 96374; 96375; G0378; J0696; J1885; J2405; J2704

== ENCOUNTER 2022-05-14 12:18 | Emergency (ER) | payer MEDICAID ==
[~2022-05-14] VITALS: Ht 154.9 cm; Wt 101.2 kg
[2022-05-14 13:12] VITALS: BP 115/46
== END 2022-05-14 14:17 | disposition home or self-care (01) ==
LOC: ER 12:20
DX: S00.451A Superficial foreign body of right ear, initial encounter (principal); I10 Essential (primary) hypertension; J44.9 Chronic obstructive pulmonary disease, unspecified; Z86.2 Personal history of diseases of the blood and blood-forming organs and certain disorders involving the immune mechanism; Z90.49 Acquired absence of other specified parts of digestive tract; Z79.899 Other long term (current) drug therapy; Z79.2 Long term (current) use of antibiotics; X58.XXXA Exposure to other specified factors, initial encounter; Y93.89 Activity, other specified; Y92.89 Other specified places as the place of occurrence of the external cause; Y99.8 Other external cause status

== ENCOUNTER 2024-03-09 21:19 | Inpatient (IN) | payer MEDICAID ==
[~2024-03-09] VITALS: Ht 152.4 cm; Wt 97.0 kg
[2024-03-09 22:18] LABS: Eosinophils # (auto) 0 10 ^3/uL (0-0.8); Hemoglobin 11.1 g/dL (12.2-16.2); Monocytes # (auto) 0.4 10 ^3/uL (0-1.3); Neutrophils # (auto) 4.5 10 ^3/uL (1.6-8.6)
[2024-03-09 22:20] LABS: Basophils # (auto) 0.1 10 ^3/uL (0-0.2); Basophils % (auto) 0.9 % (0.0-2.0); Eosinophils % (auto) 0.6 % (0.0-7.0); Hematocrit 34.6 % (36.0-46.0); Lymphocytes # (auto) 1.5 10 ^3/uL (0.4-5.4); Lymphocytes % (auto) 23.6 % (10.0-50.0); Mean Corpuscular Hemoglobin 26.7 pg (28.0-32.0); Mean Corpuscular Hgb Conc. 32.1 g/dL (32.0-36.0); Mean Corpuscular Volume 83.2 fL (80.0-100.0); Monocytes % (auto) 6.4 % (0.0-12.0); Neutrophils % (auto) 68.5 % (37.0-80.0); Nucleated Red Blood Cells % 0.1 %; Red Blood Cells 4.16 10^6/uL (4.0-5.20); Red Cell Distribution Width 18.2 % (11.8-14.3); White Blood Cell 6.5 10^3/uL (4.4-10.8)
[2024-03-09 22:24] LABS: Chloride 115 mmol/L (98-107); Potassium 3.7 mmol/L (3.5-5.1); Sodium 139 mmol/L (136-145)
[2024-03-09 22:25] LABS: Anion Gap 2 (5-15); Calcium 9.4 mg/dL (8.5-10.1); Carbon Dioxide 22 mmol/L (20-30)
[2024-03-09 22:30] LABS: BUN/Creatinine Ratio 14.1 (10.0-20.0); Blood Urea Nitrogen 13 mg/dL (9-23); Glucose 100 mg/dL (74-106)
[2024-03-09 23:30] VITALS: RESP 19; O2SAT 96
[2024-03-10] MEDS: IOHEXOL 300 MG/ML 100ML BOTTLE IJ ONE (00:55)
[2024-03-10] MEDS: VANCOMYCIN 1GM/200ML 200 ML IV ONE (00:55)
[2024-03-10] MEDS ORDERED: ONDANSETRON HCL 4 MG/2 ML VIAL IV PRN (06:15)
[2024-03-10] MEDS ORDERED: ACETAMINOPHEN 325 MG TAB PO PRN (06:15)
[2024-03-10] MEDS: CLINDAMYCIN 600MG IV 50 ML IV SCH (06:58)
[2024-03-10 07:42] VITALS: PULSE 62; RESP 20; O2SAT 96
[2024-03-10] MEDS: cefTRIAXone 1GM/50ML D5W 50 ML IV SCH (08:03)
[2024-03-10] MEDS: HYDROcodone-ACET 5/325MG TAB PO PRN (08:25)
[2024-03-10] MEDS: LISINOPRIL 5 MG TAB PO SCH (10:00)
[2024-03-10] MEDS: CLINDAMYCIN 300MG IV 50 ML IV SCH (14:51)
[2024-03-10] MEDS: PIPERACILLIN-TAZOB 3.375GM 100 ML IV SCH (14:52)
[2024-03-10 19:50] VITALS: BP 132/91; PULSE 59; RESP 18; TEMP 98.8
[2024-03-10] MEDS ORDERED: PRED10TA PO (19:52)
[2024-03-10 21:15] VITALS: BP 132/91; PULSE 58; RESP 18; TEMP 98.8; O2SAT 97
[2024-03-11] VITALS (7 sets, daily range): BP systolic 124–143; BP diastolic 82–101; PULSE 45–64; RESP 16–49; TEMP 97.5–98.4; O2SAT 96–99
[2024-03-11] MEDS: HYDROcodone-ACET 10/325MG TAB PO PRN (03:13)
[2024-03-11 07:34] LABS: Basophils # (auto) 0 10 ^3/uL (0-0.2); Lymphocytes # (auto) 1.1 10 ^3/uL (0.4-5.4); Monocytes # (auto) 0.4 10 ^3/uL (0-1.3)
[2024-03-11 07:36] LABS: Basophils % (auto) 0.4 % (0.0-2.0); Eosinophils # (auto) 0 10 ^3/uL (0-0.8); Eosinophils % (auto) 0.8 % (0.0-7.0); Lymphocytes % (auto) 21.9 % (10.0-50.0); Mean Corpuscular Hemoglobin 26.9 pg (28.0-32.0); Mean Corpuscular Hgb Conc. 32.3 g/dL (32.0-36.0); Mean Corpuscular Volume 83.3 fL (80.0-100.0); Monocytes % (auto) 7.3 % (0.0-12.0); Neutrophils # (auto) 3.6 10 ^3/uL (1.6-8.6); Neutrophils % (auto) 69.6 % (37.0-80.0); Nucleated Red Blood Cells % 0.1 %; Red Blood Cells 4.09 10^6/uL (4.0-5.20); Red Cell Distribution Width 17.8 % (11.8-14.3); White Blood Cell 5.2 10^3/uL (4.4-10.8)
[2024-03-11 07:40] LABS: Albumin 3.9 g/dL (3.2-4.8); Alkaline Phosphatase 68 U/L (46-116); Anion Gap 10 (5-15); Aspartate Aminotransferase < 8 U/L (13-40); BUN/Creatinine Ratio 8.2 (10.0-20.0); Bilirubin, Total 0.4 mg/dL (0.2-1.0); Blood Urea Nitrogen 7 mg/dL (9-23); Calcium 9.2 mg/dL (8.7-10.4); Carbon Dioxide 14 mmol/L (20-30); Chloride 115 mmol/L (98-107); Glucose 85 mg/dL (74-106); Potassium 3.5 mmol/L (3.5-5.1); Sodium 139 mmol/L (136-145); Total Protein 6.9 g/dL (5.7-8.2)
[2024-03-11 07:42] LABS: Alanine Aminotransferase < 9 U/L (7-40)
[2024-03-11] MEDS: predniSONE 5 MG TAB PO SCH (09:59)
[2024-03-11] MEDS: FLORASTOR (S. BOULARDII) 250 MG CAP PO SCH (09:59)
[2024-03-12] VITALS (7 sets, daily range): BP systolic 116–132; BP diastolic 68–95; PULSE 48–66; RESP 18–21; TEMP 96.9–98.7; O2SAT 96–100
[2024-03-13] VITALS (8 sets, daily range): BP systolic 114–124; BP diastolic 61–90; PULSE 53–76; RESP 16–20; TEMP 97–98.6; O2SAT 96–100
[2024-03-13 06:55] LABS: Chloride 116 mmol/L (98-107); Potassium 3.3 mmol/L (3.5-5.1); Sodium 139 mmol/L (136-145)
[2024-03-13 06:56] LABS: Anion Gap 6 (5-15); Calcium 9.2 mg/dL (8.7-10.4); Carbon Dioxide 17 mmol/L (20-30)
[2024-03-13 07:01] LABS: BUN/Creatinine Ratio 7.5 (10.0-20.0); Blood Urea Nitrogen 7 mg/dL (9-23); Glucose 87 mg/dL (74-106)
[2024-03-13] MEDS: levoFLOXacin 500MG 100 ML IV SCH (12:03)
[2024-03-14 01:00] VITALS: BP 110/73; PULSE 67; RESP 16; TEMP 97.5; O2SAT 99
[2024-03-14 05:00] VITALS: BP 127/75; PULSE 63; RESP 18; TEMP 98.2; O2SAT 97
[2024-03-14 07:30] VITALS: PULSE 80; RESP 20; O2SAT 96
[2024-03-14 09:26] VITALS: BP 136/82; PULSE 80; RESP 20; TEMP 98.3; O2SAT 98
[2024-03-14 13:08] VITALS: BP 153/91; PULSE 51; RESP 18; TEMP 98; O2SAT 98
[2024-03-14] MEDS ORDERED: LEVO500T91 PO (13:44)
[2024-03-14 15:24] VITALS: BP 136/82; PULSE 98; RESP 18; TEMP 36.7; O2SAT 96
== END 2024-03-14 16:45 | disposition home health service (06) | DRG 383 ==
LOC: ER 21:19 → OVERFLOW 03-10 06:13 → WEST WING 03-10 19:50
PROVIDERS: ADMIT Nurse Practitioner; ATTEND Nurse Practitioner Acute Care
DX: L03.116 Cellulitis of left lower limb (principal); S81.802A Unspecified open wound, left lower leg, initial encounter; E66.9 Obesity, unspecified; F32.A Depression, unspecified; X58.XXXA Exposure to other specified factors, initial encounter; G89.4 Chronic pain syndrome; B96.4 Proteus (mirabilis) (morganii) as the cause of diseases classified elsewhere; B96.29 Other Escherichia coli [E. coli] as the cause of diseases classified elsewhere; I10 Essential (primary) hypertension; J44.9 Chronic obstructive pulmonary disease, unspecified; Z87.442 Personal history of urinary calculi; Z87.11 Personal history of peptic ulcer disease; Z79.899 Other long term (current) drug therapy; Z79.891 Long term (current) use of opiate analgesic; Z90.49 Acquired absence of other specified parts of digestive tract; Y93.89 Activity, other specified; Y92.89 Other specified places as the place of occurrence of the external cause; Y99.8 Other external cause status; Z68.41 Body mass index [BMI] 40.0-44.9, adult
CPT/HCPCS: 36415; 73701; 80048; 80053; 83605; 85025; 87077; 87186; 87205; 93926; 96365; 96366; 96367; 96368; G0378; J1956; J2543; J3490